=== PATIENT | female | born 1975 | race Hispanic/Latino ===

== ENCOUNTER 2019-02-17 11:02 | Emergency (ER) | payer SELFPAY ==
[2019-02-17] MEDS ORDERED: PROCHLORPERAZINE EDISYLATE 10 MG/2 ML VIAL ONE (11:25)
[2019-02-17] MEDS ORDERED: SODIUM CHLORIDE 0.9% 500ML 500 ML IV ONE (11:25)
[2019-02-17 11:46] LABS: BASOPHILS % (AUTO) 0.5 % (0.0-5.0); HEMATOCRIT 41.4 % (36-48); LYMPHOCYTES % (AUTO) 39.8 % (21.0-51.0); MEAN CORPUSCULAR HEMOGLOBIN 30.6 pg (27.0-33.0); MEAN CORPUSCULAR HGB CONC 34.5 g/dL (32.0-36.0); MEAN CORPUSCULAR VOLUME 88.9 fL (79-99); MONOCYTES % (AUTO) 5.8 % (3.0-13.0); NEUTROPHILS % (AUTO) 51.9 % (40.0-77.0); PLATELET COUNT (AUTO) 224 K/uL (130-400); RED BLOOD CELL COUNT(AUTO) 4.66 MIL/uL (4.00-5.50); RED CELL DISTRIBUTION WIDTH 13.5 % (11.0-15.5); WHITE BLOOD COUNT (AUTO) 6.9 K/uL (4.8-10.8)
[2019-02-17 11:56] LABS: CREATININE 0.6 mg/dL (0.5-1.5); POTASSIUM 3.8 mmol/L (3.5-5.1)
[2019-02-17 11:56] LABS: APPEARANCE,URINE Clear (CLEAR); BILIRUBIN,URINE Negative (NEGATIVE); COLOR,URINE Yellow (YELLOW); GLUCOSE, URINE (UA) Negative (NEGATIVE); KETONES,URINE Negative (NEGATIVE); LEUKOCYTE ESTERASE ,URINE Small (NEGATIVE); NITRATE,URINE Negative (NEGATIVE); OCCULT BLOOD,URINE Trace (NEGATIVE); PROTEIN,URINE Negative (NEGATIVE); UROBILINOGEN,URINE 0.2 mg/dL (0.2-1.0)
[2019-02-17 12:01] LABS: ALBUMIN 4.1 g/dL (3.5-5.0); BILIRUBIN,TOTAL 0.6 mg/dL (0.2-1.0); TOTAL PROTEIN, SERUM 7.6 g/dL (6.0-8.3)
[2019-02-17 12:18] LABS: BACTERIA,URINE Moderate /HPF (None Seen); MUCUS,URINE Moderate LPF (None Seen)
== END 2019-02-17 14:35 | disposition home or self-care (01) ==
LOC: EDH 11:02
DX: N39.0 Urinary tract infection, site not specified (principal); R51 Headache; R20.2 Paresthesia of skin; E78.5 Hyperlipidemia, unspecified; F41.9 Anxiety disorder, unspecified; Z90.49 Acquired absence of other specified parts of digestive tract; Z90.710 Acquired absence of both cervix and uterus
CPT/HCPCS: 36415; 70450; 80053; 81001; 84484; 85025; 93005; 96374; 99285; J0780; J7040

== ENCOUNTER 2019-03-01 02:42 | Emergency (ER) | payer SELFPAY ==
[2019-03-01] MEDS ORDERED: HYDROCODONE/ACETAMINOPHEN 5/325 MG TAB ONE (03:12)
[2019-03-01] MEDS ORDERED: KETOROLAC TROMETHAMINE 60 MG/2 ML VIAL ONE (03:12)
[2019-03-01] MEDS ORDERED: MORPHINE SULFATE 4 MG/1ML SYG ONE (05:15)
== END 2019-03-01 06:00 | disposition home or self-care (01) ==
LOC: EDH 02:42
DX: M77.9 Enthesopathy, unspecified (principal); E78.5 Hyperlipidemia, unspecified; F41.9 Anxiety disorder, unspecified; Z90.710 Acquired absence of both cervix and uterus; Z98.890 Other specified postprocedural states
CPT/HCPCS: 96372 ×2; 99284; J1885; J2270

== ENCOUNTER 2019-05-17 07:18 | Emergency (ER) | payer OTHER ==
[2019-05-17] MEDS ORDERED: ORPHENADRINE CITRATE 30 MG/ML ML ONE (08:09)
[2019-05-17] MEDS ORDERED: DEXAMETHASONE SOD PHOSPHATE 4 MG/ML 1ML VIAL ONE (08:09)
[2019-05-17] MEDS ORDERED: KETOROLAC TROMETHAMINE 60 MG/2 ML VIAL ONE (08:10)
== END 2019-05-17 09:41 | disposition home or self-care (01) ==
LOC: EDH 07:18
DX: S39.012A Strain of muscle, fascia and tendon of lower back, initial encounter (principal); M62.830 Muscle spasm of back; E78.5 Hyperlipidemia, unspecified; F41.9 Anxiety disorder, unspecified; Z90.710 Acquired absence of both cervix and uterus; X50.0XXA Overexertion from strenuous movement or load, initial encounter; Y93.89 Activity, other specified; Y92.89 Other specified places as the place of occurrence of the external cause; Y99.8 Other external cause status; S83.92XA Sprain of unspecified site of left knee, initial encounter
CPT/HCPCS: 96372 ×3; 99284; J1100; J1885; J2360

== ENCOUNTER 2019-09-28 07:45 | Inpatient (IN) | payer OTHER ==
[2019-09-25 10:20] VITALS: BP 140/75
[2019-09-28] VITALS (32 sets, daily range): BP systolic 114–160; BP diastolic 67–99
[~2019-09-28] VITALS: Ht 154.9 cm; Wt 81.6 kg
[~2019-09-28 07:45] MED LIST: DULO60CA64 PO; ERGOCALCIFEROL PO; GABA-531 PO; HYDR-3421 PO; METH750T3 PO; TRAM50TA4 PO
[2019-09-28] MEDS ORDERED: LACTATED RINGERS 1000ML 1,000 ML IV ONE (09:06)
[2019-09-28] MEDS ORDERED: MIDAZOLAM HCL 1 MG/ML 2ML VIAL ONE (11:04)
[2019-09-28] MEDS ORDERED: OXYMETAZOLINE HCL SPRAY 15 ML BOTTLE ONE (11:26)
[2019-09-28] MEDS ORDERED: LIDOCAINE PF 2% 5ML ABBOJECT ONE (11:29)
[2019-09-28] MEDS ORDERED: PROPOFOL 10 MG/ML 20ML VIAL IV ONE ×2 (11:29→11:53)
[2019-09-28] MEDS ORDERED: ROCURONIUM 10MG/1ML SYR 10 MG/ML ML ONE (11:29)
[2019-09-28] MEDS ORDERED: FENTANYL CITRATE PF 50 MCG/1 ML 2ML VIAL ONE ×2 (11:30→11:54)
[2019-09-28] MEDS ORDERED: BACITRACIN 28.4 GM OINT TP ONE (11:41)
[2019-09-28] MEDS ORDERED: LIDOCAINE 1%-EPI 1:100,000 20 ML VIAL IJ ONE (11:42)
[2019-09-28] MEDS ORDERED: EPINEPHRINE 1 MG/ML 30ML VIAL IJ ONE (11:42)
[2019-09-28] MEDS ORDERED: ROPIVACAINE 0.5% 5MG/ML 30ML IJ ONE (11:42)
[2019-09-28] MEDS ORDERED: ONDANSETRON HCL 4 MG/2 ML VIAL ONE ×2 (11:46→14:45)
[2019-09-28] MEDS ORDERED: KETOROLAC TROMETHAMINE 30MG/ML ONE (12:05)
[2019-09-28] MEDS ORDERED: NEOSTIGMINE 5MG/5ML SYR IV ONE (12:07)
[2019-09-28] MEDS ORDERED: GLYCOPYRROLATE 1 MG/5 ML SYRINGE ONE (12:07)
[2019-09-28] MEDS ORDERED: DEXAMETHASONE SOD PHOSPHATE 10MG/ML 1ML VIAL ONE (12:16)
[2019-09-28] MEDS ORDERED: MEPERIDINE-PF 25 MG/ML SYG ONE ×2 (12:42→12:54)
--- NOTE | 2019-09-28 14:13 | NUR ---
SPOKE TO CHARLEY RODRIGUEZ MA AND I ADVISED HIM THAT I NEED TO GET A HOLD OF DOCTOR MD CORIE NOT IN OFFICE PENDING CALL BACK, PT HAD EMESIS EPISODE AND A TOTAL OF 400CC OF DARK BLOOD WAS NOTED. DOCTOR FONTENOT CALLED BACK AT 1417, NEW ORDERS TO ADMIT PT. ADVISED HEADHUNTER AND INFORMED PT AND FAMILY.
--- NOTE | 2019-09-28 14:30 | NUR ---
GAVE REPORT TO MARLENA CHAPMAN, INFORMED HER OF PT HAVING EMESIS , PENDING HOSPITALIST TO EVALUATE.
--- NOTE | 2019-09-28 14:45 | NUR ---
REPORT RECEIVED PT FROM COREY MOSCOSO TO [facility]. PT AWAKE AND ALERT NOTED VOMITING DARK RED BLOOD . ABOUT 200 CC, DRESSING TO BASE OF NOSE DRY AND INTACT. PT WILL BE MEDICATED FOR NAUSE MED
--- NOTE | 2019-09-28 14:54 | NUR ---
NAUSEA MEDICATED WITH ZOFRAN FOR C/O EMESIS. WILL CONTINUE TO MONITOR
[2019-09-28] MEDS ORDERED: MORPHINE SULFATE 2 MG/ML 1ML SYG ONE (15:04)
--- NOTE | 2019-09-28 15:05 | NUR ---
HOSPITALIST MIHIR GRINDER [employer] WITH DR. AGUSTIN CAME TO ASSESS PATIENT FOR NEW CONSULT.
--- NOTE | 2019-09-28 15:10 | NUR ---
PAIN MEDICATED WITH MORPHINE ORDERED BY MD FOR C/O PAIN. WILL CONTINUE TO MONITOR
[2019-09-28] MEDS ORDERED: ONDANSETRON HCL 4 MG/2 ML VIAL IVP PRN (15:15)
[2019-09-28] MEDS ORDERED: DEXTROSE 5 % AND 0.9 % NACL 1,000 ML IV SCH (15:15)
[2019-09-28] MEDS: MORPHINE SULFATE 2 MG/ML 1ML SYG IVP PRN ×3 (16:00→20:17)
--- NOTE | 2019-09-28 16:00 | NUR ---
REPORT REPORT GIVEN TO Gerard MURRELL RN IN 4TH FLOOR
--- NOTE | 2019-09-28 16:15 | NUR ---
TRANSFER PT TRANSFERED TO ROOM 418 VIA STRETCHER, PT AWAKE AND ALERT .. NO DISTRESS NOTED. DRESSING TO NOSE BASE DRY AND INTACT. VS STABLE , 02 SAT 98 % ON ROOM AIR.ON TRANSFER. COLT MURRELL RN WAS THE RECEIVING NURSE. FAMILY AT BEDSIDE.
[2019-09-28] MEDS ORDERED: KETOROLAC TROMETHAMINE 15MG/ML IV SCH (17:30)
[2019-09-28] MEDS ORDERED: KETOROLAC TROMETHAMINE 15MG/ML ONE (17:30)
[2019-09-28 17:33] LABS: HEMATOCRIT 40.6 % (36-48); MEAN CORPUSCULAR HEMOGLOBIN 30.4 pg (27.0-33.0); MEAN CORPUSCULAR HGB CONC 34.5 g/dL (32.0-36.0); MEAN CORPUSCULAR VOLUME 88.3 fL (79-99); PLATELET COUNT (AUTO) 291 K/uL (130-400); RED CELL DISTRIBUTION WIDTH 12.8 % (11.0-15.5); WHITE BLOOD COUNT (AUTO) 15.3 K/uL (4.8-10.8)
[2019-09-28 17:40] LABS: CREATININE 0.9 mg/dL (0.5-1.5); POTASSIUM 3.7 mmol/L (3.5-5.1)
--- NOTE | 2019-09-28 19:12 | NUR ---
CHANGED DRESSING, NO MORE ACTIVE BLEEDING GAVE REPORT TO KRISSY JENKINS THAT WE ARE WAITING ON A H/H RESULTS. PT IS NO LONGER ACTIVELY BLEEDING AT THIS MOMENT AFTER DRESSING CHANGE, BUT WAS ADVISED TO CALL SURGEON IF PATIENT STARTS BLEEDING OR IF H/H DROPS.
[2019-09-28 19:33] LABS: INR 0.98 (0.85-1.15); PROTHROMBIN TIME 10.3 SEC (9.6-11.6)
[2019-09-28] MEDS: CEFTRIAXONE SODIUM 1 GM IVP SCH (20:14)
[2019-09-28 23:23] LABS: HEMATOCRIT 34.9 % (36-48)
[2019-09-28] MEDS: DEXTROSE 5 % AND 0.9 % NACL 1,000 ML IV SCH (23:30)
[2019-09-29] MEDS: MORPHINE SULFATE 2 MG/ML 1ML SYG IVP PRN ×3 (01:25→17:57)
[2019-09-29] MEDS: ONDANSETRON HCL 4 MG/2 ML VIAL IVP PRN ×3 (01:25→17:56)
[2019-09-29 03:00] VITALS: BP 99/70
[2019-09-29 04:39] LABS: HEMATOCRIT 30.7 % (36-48); MEAN CORPUSCULAR HEMOGLOBIN 30.7 pg (27.0-33.0); MEAN CORPUSCULAR HGB CONC 34.9 g/dL (32.0-36.0); PLATELET COUNT (AUTO) 271 K/uL (130-400); RED BLOOD CELL COUNT(AUTO) 3.49 MIL/uL (4.00-5.50); RED CELL DISTRIBUTION WIDTH 12.9 % (11.0-15.5); WHITE BLOOD COUNT (AUTO) 16.6 K/uL (4.8-10.8)
[2019-09-29] MEDS: DEXTROSE 5 % AND 0.9 % NACL 1,000 ML IV SCH (04:41)
[2019-09-29 05:07] LABS: CREATININE 0.9 mg/dL (0.5-1.5); POTASSIUM 4.1 mmol/L (3.5-5.1)
[2019-09-29 07:47] VITALS: BP 95/64
[2019-09-29 10:51] VITALS: BP 129/73
--- NOTE | 2019-09-29 11:40 | NUR ---
CHART REVIEWED [facility] FORM GENERATED, ORDER OBTAINED
--- NOTE | 2019-09-29 13:20 | NUR ---
Initial Assessment Patient lives with spouse, Prosper Mcguire, . She has no home services or DME. 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 She is able to complete ADL's independently and drives. Pharmacy is [facility] on [address]. DCP is home. Addendum: 09/29/19 at 1322 by UNIQUE LONGORIA SS Amended: Links added.
[2019-09-29 15:43] VITALS: BP 125/74
[2019-09-29 19:00] VITALS: BP 121/74
[2019-09-29] MEDS: CEFTRIAXONE SODIUM 1 GM IVP SCH (21:17)
--- NOTE | 2019-09-29 21:41 | NUR ---
CALL PLACED TO HOSPITALIST TO INFORM OF HEART RATE IN THE 130'S AND PATIENT ALSO WANTING SOMETHING FOR MOUTH PAIN. PATIENT STATES MORPHINE DOES NOT WORK. RETURN CALL PENDING. Addendum: 09/29/19 at 2143 by GREGORY JOHN RN RN Amended: Links added.
[2019-09-29] MEDS ORDERED: PHENOL 177 ML BOTTLE PO PRN (22:00)
--- NOTE | 2019-09-29 22:16 | NUR ---
HOSPITALIST CALLED BACK. NEW ORDERS RECEIVED AND CARRIED OUT. PATIENT AWARE. VITALS STABLE. AFEBRILE. CALL LIGHT WITHIN REACH. WILL CONTINUE TO BE OBSERVED. Addendum: 09/29/19 at 2218 by GREGORY JOHN RN RN Amended: Links added.
[2019-09-29 23:00] VITALS: BP 108/55
[2019-09-29] MEDS ORDERED: MORPHINE SULFATE 4 MG/1ML SYG ONE (23:26)
[2019-09-30 03:00] VITALS: BP 102/58
[2019-09-30] MEDS: MORPHINE SULFATE 4 MG/1ML SYG IVP PRN ×3 (04:45→20:06)
[2019-09-30 05:56] LABS: BASOPHILS % (AUTO) 0.3 % (0.0-5.0); EOSINOPHILS % (AUTO) 0.2 % (0.0-8.0); LYMPHOCYTES % (AUTO) 32.5 % (21.0-51.0); MEAN CORPUSCULAR HEMOGLOBIN 30.8 pg (27.0-33.0); MEAN CORPUSCULAR HGB CONC 34.2 g/dL (32.0-36.0); MEAN CORPUSCULAR VOLUME 90.2 fL (79-99); MONOCYTES % (AUTO) 5.3 % (3.0-13.0); NEUTROPHILS % (AUTO) 61.2 % (40.0-77.0); PLATELET COUNT (AUTO) 196 K/uL (130-400); RED BLOOD CELL COUNT(AUTO) 2.66 MIL/uL (4.00-5.50); RED CELL DISTRIBUTION WIDTH 13.2 % (11.0-15.5); WHITE BLOOD COUNT (AUTO) 13.3 K/uL (4.8-10.8)
[2019-09-30 06:08] LABS: ALBUMIN 3.3 g/dL (3.5-5.0); BILIRUBIN,TOTAL 0.4 mg/dL (0.2-1.0); CREATININE 0.7 mg/dL (0.5-1.5); POTASSIUM 3.6 mmol/L (3.5-5.1)
[2019-09-30 08:00] VITALS: BP 110/73
[2019-09-30] MEDS ORDERED: EPOETIN ALFA 10,000 UNIT/ML VIAL SQ SCH (10:15)
[2019-09-30] MEDS ORDERED: COMPOUND IV MISC 1 EACH IVSOLN MISC PRN (10:30)
[2019-09-30] MEDS: HYDROCODONE/ACETAMINOPHEN 5/325 MG TAB PO PRN ×3 (10:37→23:27)
[2019-09-30 11:01] LABS: % IRON SATURATION 25.8 % (22-44)
[2019-09-30 11:47] VITALS: BP 125/66
[2019-09-30] MEDS: IRON SUCROSE COMPLEX 100 MG in SODIUM CHLORIDE 0.9% 50 ML IV SCH (12:33)
[2019-09-30 16:00] VITALS: BP 115/74
[2019-09-30] MEDS ORDERED: FAMOTIDINE/PF 20 MG/2 ML VIAL IV ONE (17:07)
[2019-09-30] MEDS: CEFTRIAXONE SODIUM 1 GM IVP SCH (20:04)
[2019-09-30] MEDS: FAMOTIDINE/PF 20 MG/2 ML VIAL IV SCH (20:04)
[2019-09-30 20:20] VITALS: BP 100/62
[2019-10-01 00:24] VITALS: BP 111/64
[2019-10-01 04:24] VITALS: BP 114/68
[2019-10-01] MEDS: MORPHINE SULFATE 4 MG/1ML SYG IVP PRN (04:31)
[2019-10-01 05:21] LABS: BASOPHILS % (AUTO) 0.1 % (0.0-5.0); EOSINOPHILS % (AUTO) 0.8 % (0.0-8.0); HEMATOCRIT 23.9 % (36-48); LYMPHOCYTES % (AUTO) 35.6 % (21.0-51.0); MEAN CORPUSCULAR HEMOGLOBIN 30.8 pg (27.0-33.0); MEAN CORPUSCULAR HGB CONC 33.9 g/dL (32.0-36.0); MEAN CORPUSCULAR VOLUME 90.9 fL (79-99); MONOCYTES % (AUTO) 6.7 % (3.0-13.0); NEUTROPHILS % (AUTO) 56.2 % (40.0-77.0); PLATELET COUNT (AUTO) 189 K/uL (130-400); RED BLOOD CELL COUNT(AUTO) 2.63 MIL/uL (4.00-5.50); RED CELL DISTRIBUTION WIDTH 13.2 % (11.0-15.5); WHITE BLOOD COUNT (AUTO) 8.9 K/uL (4.8-10.8)
[2019-10-01 05:41] LABS: ALBUMIN 3.2 g/dL (3.5-5.0); BILIRUBIN,TOTAL 0.4 mg/dL (0.2-1.0); CREATININE 0.6 mg/dL (0.5-1.5); POTASSIUM 3.6 mmol/L (3.5-5.1); TOTAL PROTEIN, SERUM 6.3 g/dL (6.0-8.3)
[2019-10-01 08:00] VITALS: BP 114/74
[2019-10-01] MEDS: FAMOTIDINE/PF 20 MG/2 ML VIAL IV SCH ×2 (09:02→20:06)
[2019-10-01] MEDS: IRON SUCROSE COMPLEX 100 MG in SODIUM CHLORIDE 0.9% 50 ML IV SCH (09:03)
[2019-10-01] MEDS: HYDROCODONE/ACETAMINOPHEN 5/325 MG TAB PO PRN ×2 (09:04→18:06)
[2019-10-01 12:00] VITALS: BP 118/71
[2019-10-01] MEDS: MORPHINE SULFATE 2 MG/ML 1ML SYG IVP PRN (13:57)
[2019-10-01 16:00] VITALS: BP 109/57
[2019-10-01] MEDS: CEFTRIAXONE SODIUM 1 GM IVP SCH (20:06)
[2019-10-01 20:20] VITALS: BP 122/72
[2019-10-02 00:24] VITALS: BP 121/75
[2019-10-02] MEDS: HYDROCODONE/ACETAMINOPHEN 5/325 MG TAB PO PRN ×3 (01:51→16:07)
[2019-10-02 04:24] VITALS: BP 102/65
[2019-10-02 05:26] LABS: BASOPHILS % (AUTO) 0.1 % (0.0-5.0); EOSINOPHILS % (AUTO) 0.9 % (0.0-8.0); HEMATOCRIT 27.8 % (36-48); LYMPHOCYTES % (AUTO) 33.3 % (21.0-51.0); MEAN CORPUSCULAR HEMOGLOBIN 31.3 pg (27.0-33.0); MEAN CORPUSCULAR HGB CONC 35.3 g/dL (32.0-36.0); MEAN CORPUSCULAR VOLUME 88.8 fL (79-99); MONOCYTES % (AUTO) 5.6 % (3.0-13.0); NEUTROPHILS % (AUTO) 59.7 % (40.0-77.0); NUCLEATED RED BLOOD CELLS 0.3 % (0.0-0.19); PLATELET COUNT (AUTO) 221 K/uL (130-400); RED BLOOD CELL COUNT(AUTO) 3.13 MIL/uL (4.00-5.50)
[2019-10-02 05:53] LABS: ALBUMIN 3.3 g/dL (3.5-5.0); BILIRUBIN,TOTAL 0.5 mg/dL (0.2-1.0); CREATININE 0.6 mg/dL (0.5-1.5); POTASSIUM 3.7 mmol/L (3.5-5.1); TOTAL PROTEIN, SERUM 6.6 g/dL (6.0-8.3)
[2019-10-02] MEDS: MORPHINE SULFATE 2 MG/ML 1ML SYG IVP PRN ×2 (06:35→12:28)
[2019-10-02] MEDS ORDERED: EPOETIN ALFA 10,000 UNIT/ML VIAL SQ SCH (07:00)
[2019-10-02 07:30] VITALS: BP 130/82
[2019-10-02] MEDS: FAMOTIDINE/PF 20 MG/2 ML VIAL IV SCH (09:24)
[2019-10-02] MEDS ORDERED: LACTULOSE 20 GM/30 ML UDCUP PO STA (10:12)
[2019-10-02] MEDS ORDERED: CEFD300C3 PO (10:16)
[2019-10-02] MEDS ORDERED: FERS325 PO (10:16)
--- NOTE | 2019-10-02 10:45 | NUR ---
Nutrition Intervention: Nutrition screen based on LOS x 4 days. Pt. on GI Soft [place] diet with good p.o. intake, as per pt. Labs reviewed(Alb 3.3). SR-21, elastic. BMI: 34, obesity grade 1. Recommendations: 1) Rec. Heart Healthy GI Soft [place] diet. 2) Continue to monitor pt's nutritional status. 3) Consult RD as nutrition concerns arise. Addendum: 10/02/19 at [address] Amended: Links added.
[2019-10-02 11:00] VITALS: BP 111/71
--- NOTE | 2019-10-02 12:14 | NUR ---
DR. CORIE NOBLE RE; D/C ORDER
[2019-10-02] MEDS: IRON SUCROSE COMPLEX 100 MG in SODIUM CHLORIDE 0.9% 50 ML IV SCH (12:22)
[2019-10-02] MEDS ORDERED: LACTULOSE 20 GM/30 ML UDCUP ONE (12:26)
[2019-10-02 16:00] VITALS: BP 124/78
--- NOTE | 2019-10-02 17:29 | NUR ---
PT D/C HOME USING TEACH BACK TECHNIQUE RE; NEW MEDS, HOME MEDS, S/S TO WATCH FOR AND WHEN TO CALL MD. PLEASE FOLLOW UP WITH DR. FONTENOT ( ) ON SATURDAY OCTOBER 05, 2019@ 10:00AM. FOLLOW UP WITH YOUR PRIMARY DOCTOR IN 2-4 DAYS FOR TRANSITION OF CARE. IF YOU NOTICE MODERAT TO LARGE AMOUNT OF BLEEDING FROM YOUR MOUTH OR NOSE CALL YOUR SURGEON DR. FONTENOT. IF HAVING FEVERS OF 101.0 OR DRAINAGE SUCH PUS COMING OUT OF YOUR INCISIONS CALL YOUR SURGEON WELL. IV OUT INTACT, NO BLEEDING, NO DISTRESS, AAOX3, DENIES ANY NEEDS.
== END 2019-10-02 17:40 | disposition home or self-care (01) | DRG 133 ==
LOC: DAH 07:45 → OBSVTOIN 07:46 → 4CH 07:46
PROVIDERS: ADMIT Otolaryngology Plastic Surgery within the Head & Neck; ATTEND Otolaryngology Plastic Surgery within the Head & Neck
PROC: 0CTQ0ZZ Resection of Adenoids, Open Approach (ICD-10-PCS; 2019-09-28)
PROC: 0CBNXZZ Excision of Uvula, External Approach (ICD-10-PCS; principal; 2019-09-28 11:38)
PROC: 0CTPXZZ Resection of Tonsils, External Approach (ICD-10-PCS; 2019-09-28 11:38)
PROC: 30233N1 Transfusion of Nonautologous Red Blood Cells into Peripheral Vein, Percutaneous Approach (ICD-10-PCS; 2019-10-01)
DX: R04.0 Epistaxis (principal); D62 Acute posthemorrhagic anemia; D72.829 Elevated white blood cell count, unspecified; G89.18 Other acute postprocedural pain; E78.5 Hyperlipidemia, unspecified; R00.0 Tachycardia, unspecified
CPT/HCPCS: 36415; 36430; 80048; 80053; 83540; 83550; 85014; 85018; 85025; 85027; 85610; 86850; 86900; 86901; 86922; 88304; 94760; 96374; 97039; A4606; G0378; J0171; J0696; J0885; J1100; J1756; J1885; J2001; J2175; J2250; J2270; J2405; J2704; J2710; J2795; J3010; J3490; J7042; J7120; P9016